=== PATIENT | female | born 1995 | race African-American/Black ===

== ENCOUNTER 2024-04-11 08:34 | Emergency (ER) | payer OTHER ==
[~2024-04-11] VITALS: Ht 152.4 cm; Wt 77.0 kg
[2024-04-11 08:44] VITALS: BP 125/75
[2024-04-11 09:16] VITALS: BP 116/69
[2024-04-11] MEDS ORDERED: SODIUM CHLORIDE 0.9% 1,000 ML IV ONE (09:20)
[2024-04-11] MEDS ORDERED: DEXTROSE 50% 50 ML/SYR IV ONE (09:20)
[2024-04-11 09:30] VITALS: BP 120/61
[2024-04-11 09:51] LABS: BASO% 0.4 % (0-3); HEMATOCRIT 38.7 % (37.0-47.0); HEMOGLOBIN 12.5 g/dl (12.0-16.0); IMMATURE GRANULOCYTES 0.5 % (0.0-5.0); LYMPH% 40.6 % (15-41); MEAN CELL VOLUME 84.3 fL CALC (80.0-100.0); MEAN CORPUSCULAR HGB 27.2 pG CALC (26.0-32.0); MEAN CORPUSCULAR HGB CONC 32.3 g/dL CAL (32.0-36.0); MONO% 12.5 % (2-13); NEUT# 2.47 thou/uL (2.00-7.15); RED BLOOD COUNT 4.59 mill/uL (4.20-5.60); RED CELL DISTRI WIDTH 13.3 % (11.5-15.5)
[2024-04-11 10:00] VITALS: BP 111/59
[2024-04-11 10:36] VITALS: BP 111/59
== END 2024-04-11 10:39 | disposition home or self-care (01) | DRG 761 ==
LOC: ED 08:34
PROVIDERS: Family Medicine
DX: N92.6 Irregular menstruation, unspecified (principal)